=== PATIENT | female | born 1975 | race American Indian/Alaskan Native ===

== ENCOUNTER 2017-07-07 17:11 | Emergency (ER) | payer MEDICAID, OTHER ==
[2017-07-07 17:23] VITALS: RESP 18; TEMP 98.4; O2SAT 100
--- NOTE | 2017-07-07 17:51 | ED PDOC ---
HPI: Chest Pain Time Seen by Provider: 07/07/17 17:51 Chief Complaint (Nursing): Chest Pain Chief Complaint (Provider): CHEST PAIN History Per: Patient (42 Y/O FEMALE HERE FOR EVALUATION OF CHEST PAIN THAT OCCURRED WHILE CLEANING TODAY. PATIENT STATES SHE NOTES SHARP MID-STERNAL CHEST PAIN UNCLEAR ASSOCIATION WITH MOVEMENT/SHORTNESS OF BREATH/COUGH. PATIENT STATES PAIN BEGAN AROUND 4PM. PATIENT STATES SHE HAS CHANGED DIET RECENTLY. NORMAL MENSES/NON SMOKER/NO RECENT FLIGHTS. FAMILY H/O HEART DISEASE. ) Past Medical History Reviewed: Historical Data, Nursing Documentation, Vital Signs Vital Signs: Last Vital Signs Temp 98.4 F 07/07/17 17:18 Pulse 70 07/07/17 18:29 Resp 18 07/07/17 18:29 BP 123/78 07/07/17 18:29 Pulse Ox 100 07/07/17 18:29 - Family History Family History: States: Diabetes (On her mother's side) - Home Medications Home Medications: Ambulatory Orders Medication Instructions Recorded Docusate Sodium [Colace] 1 tab PO BID PRN #20 capsule 07/07/17 Ferrous Sulfate 1 tab PO TID #90 tablet 07/07/17 - Allergies Allergies/Adverse Reactions: Allergies Allergy/AdvReac Type Severity Reaction Status Date / Time acetaminophen [From Percocet] Allergy RASH Verified 12/17/15 02:15 aspirin Allergy RASH Verified 12/17/15 02:15 oxycodone HCl [From Percocet] Allergy RASH Verified 12/17/15 02:15 Penicillins Allergy RASH Verified 12/17/15 02:15 Review of Systems ROS Statement: Except As Marked, All Systems Reviewed And Found Negative Cardiovascular: Positive for: Chest Pain Physical Exam - Reviewed Nursing Documentation Reviewed: Yes Vital Signs Reviewed: Yes - Physical Exam Appears: Positive for: Well, Non-toxic, No Acute Distress Head Exam: Positive for: ATRAUMATIC, NORMAL INSPECTION, NORMOCEPHALIC Skin: Positive for: Normal Color, Warm, DRY Eye Exam: Positive for: EOMI, Normal appearance, PERRL ENT: Positive for: Normal ENT Inspection Neck: Positive for: Normal, Painless ROM Cardiovascular/Chest: Positive for: Regular Rate, Rhythm. Negative for: Chest Non Tender (TENDER CHEST WALL NOTED.) Respiratory: Positive for: CNT, Normal Breath Sounds Gastrointestinal/Abdominal: Positive for: Normal Exam, Bowel Sounds, Soft Back: Positive for: Normal Inspection Extremity: Positive for: Normal ROM Neurologic/Psych: Positive for: Alert, Oriented - Laboratory Results Result Diagrams: 07/07/17 18:03 07/07/17 18:03 - ECG ECG Rhythm: Positive for: Sinus Rhythm (NSR 85BPM; NO ECTOPY; NO ACUTE CHANGES NOTED) O2 Sat by Pulse Oximetry: 100 - Progress ED Course And Treament: PATIENT REFUSED PAIN MEDICATIONS IN ED. IS ALLERGIC TO ASA CXR: NAD EKG:NSR NO ECTOPY NO ACUTE CHANGES HGB NOTED 8.6. PATIENT STATES SHE HAS BEEN REFERED TO HEMATOLOGY BY FLOOR AND WALL [employer]PLIER [facility]QU[employer]. HAS H/ O HEAVY MENSTRUAL BLEEDING INTERMITTENTLY. KDUR 40 MEQ X 1 DOSE Disposition - Clinical Impression Clinical Impression: Hypokalemia, Anemia, Chest wall tenderness - Patient ED Disposition Is Patient to be Admitted: No - Disposition Referrals: [facility] [Outside] Disposition: Routine/Home Disposition Time: 19:26 Condition: FAIR Prescriptions: Docusate Sodium [Colace] 1 tab PO BID PRN #20 capsule PRN Reason: Constipation Ferrous Sulfate 1 tab PO TID #90 tablet Instructions: Anemia (ED), Chest Wall Pain (ED) Forms: [facility] ([place])
[2017-07-07 18:13] LABS: BASO % 0.5 % (0.0-2.0); EOS # 0.1 K/uL (0.0-0.7); EOS % 1.5 % (0.0-4.0); HEMATOCRIT 28.1 % (34.0-47.0); LYMPH # 1.1 K/uL (1.0-4.3); LYMPH % 33.4 % (20.0-40.0); MEAN CELL VOLUME 78.9 fl (81.0-99.0); MEAN CORPUSCULAR HGB CONC 30.5 g/dL (33.0-37.0); MEAN PLATELET VOLUME 9.4 fl (7.2-11.7); MONO # 0.3 K/uL (0.0-0.8); MONO % 9.2 % (0.0-10.0); NEUT # 1.9 K/uL (1.8-7.0); NEUT % 55.4 % (50.0-75.0); NRBC % 0.1 % (0.0-0.0); RED CELL DISTRIBUTION WIDTH 17.2 % (11.5-14.5); WHITE BLOOD COUNT 3.3 K/uL (4.8-10.8)
[2017-07-07 18:30] VITALS: BP 123/78; PULSE 70
[2017-07-07 18:34] LABS: ALB/GLOB RATIO 1.2 (1.0-2.1); ALKALINE PHOSPHATASE 55 U/L (38-126); ALT/SGPT 23 U/L (9-52); AST/SGOT 22 U/L (14-36); BILIRUBIN,TOTAL 0.6 mg/dl (0.2-1.3); BLOOD UREA NITROGEN 11 mg/dl (7-17); CALCIUM 8.7 mg/dL (8.4-10.2); CARBON DIOXIDE 25 mmol/L (22-30); CHLORIDE 106 mmol/L (98-107); GFR AFRICAN-AMERICAN > 60; GLUCOSE,RANDOM 89 mg/dL (65-105); MAGNESIUM 1.9 MG/DL (1.6-2.3); POTASSIUM 3.3 MMOL/L (3.6-5.0); SODIUM 138 mmol/l (132-148)
[2017-07-07] MEDS ORDERED: Potassium Chloride 20 mEq ER Tab PO STA (18:46)
[2017-07-07] MEDS ORDERED: Potassium Chloride 20 mEq ER Tab PO ONE (19:30)
--- NOTE | 2017-07-08 08:22 | RAD ---
HISTORY: CHEST PAIN COMPARISON: 09/17/2015. TECHNIQUE: Chest PA and lateral FINDINGS: LUNGS: No active pulmonary disease. PLEURA: No significant pleural effusion identified. No pneumothorax apparent. CARDIOVASCULAR: Normal. OSSEOUS STRUCTURES: No significant abnormalities. VISUALIZED UPPER ABDOMEN: Normal. OTHER FINDINGS: None. IMPRESSION: No active disease. No significant interval change compared to the prior examination(s).
== END 2017-07-07 19:59 | disposition home or self-care (01) ==
LOC: H.ER 17:11
DX: E87.6 Hypokalemia (principal); R07.9 Chest pain, unspecified; D64.9 Anemia, unspecified; Z82.49 Family history of ischemic heart disease and other diseases of the circulatory system